=== PATIENT | male | born 1995 | race African-American/Black ===

== ENCOUNTER 2019-09-24 20:47 | Emergency (ER) | payer MEDICAID, OTHER ==
[~2019-09-24] VITALS: Ht 188 cm; Wt 74.8 kg
[2019-09-24 21:17] VITALS: BP 132/89
--- NOTE | 2019-09-24 21:17 | NUR ---
CLOTH OPENER HAND AT BEDSIDE FOR BLOOD DRAW
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
[2019-09-24 21:22] LABS: BASOPHILS # (AUTO) 0.2 /CMM (0.0-0.2); BASOPHILS % (AUTO) 2.9 % (0.0-2.0); EOSINOPHILS % (AUTO) 1.7 % (0.0-6.0); HEMATOCRIT 41 % (39-51); HEMOGLOBIN 13.3 g/dL (13.5-17.5); LYMPHOCYTES # (AUTO) 0.9 /CMM (0.8-4.8); MEAN CORPUSCULAR HGB CONC 32 g/dl (31.0-36.0); MEAN CORPUSCULAR VOLUME 88 fL (80-96); MONOCYTES # (AUTO) 0.4 /CMM (0.1-1.30); MONOCYTES % (AUTO) 7.8 % (2.0-12.0); NEUTROPHILS # (AUTO) 3.9 /CMM (1.8-8.9); NEUTROPHILS % (AUTO) 71.6 % (43.0-81.0); PLATELET COUNT (AUTO) 288 /CMM (150-450); RED BLOOD CELL COUNT(AUTO) 4.67 MIL/uL (4.5-6.0); WHITE BLOOD COUNT (AUTO) 5.4 K/uL (4.3-11.0)
[2019-09-24 21:30] LABS: CALCIUM, SERUM 9.6 mg/dL (8.5-10.1); CARBON DIOXIDE 21 mmol/L (21-32); CHLORIDE 104 mmol/L (98-107); CREATININE 1.3 mg/dL (0.6-1.3); GLUCOSE 84 mg/dL (74-106); POTASSIUM 3.4 mmol/L (3.5-5.1); SODIUM SERUM 140 mmol/L (136-145); UREA NITROGEN, BLOOD 17 mg/dL (7-18)
[2019-09-24 21:40] LABS: ALANINE AMINOTRANSFERASE 55 U/L (12-78); ALBUMIN 3.7 g/dL (3.4-5.0); ALCOHOL, BLOOD < 3 mg/dL (0-0); ALKALINE PHOSPHATASE 84 U/L (46-116); ASPARTATE AMINOTRANSFERASE 55 U/L (15-37); BILIRUBIN,DIRECT 0.1 mg/dL (0.0-0.2); BILIRUBIN,TOTAL 0.4 mg/dL (0.2-1.0); SALICYLATE 1.1 mg/dL (2.8-20.0); TOTAL PROTEIN, SERUM 7.9 g/dL (6.4-8.2)
[2019-09-24 21:41] LABS: ACETAMINOPHEN < 2 ug/ml (10-30)
[2019-09-24] MEDS ORDERED: LIDOCAINE /MPF 1% VIAL 5 ML VIAL ONE (22:07)
--- NOTE | 2019-09-24 22:57 | NUR ---
Patient given written and verbal discharge instructions. Patient verbalizes understanding of instructions. Patient is ambulatory with steady gait. Refuses offer of halfway placement. Patient given list of available shelters in surrounding area.
== END 2019-09-24 23:18 | disposition home or self-care (01) ==
LOC: ER 20:48
DX: S01.81XA Laceration without foreign body of other part of head, initial encounter (principal); R41.82 Altered mental status, unspecified; Z59.0 Homelessness; Y04.0XXA Assault by unarmed brawl or fight, initial encounter; Y93.89 Activity, other specified; Y92.89 Other specified places as the place of occurrence of the external cause; Y99.8 Other external cause status
CPT/HCPCS: 12011; 36415; 70450; 70486; 80048; 80076; 80307; 80329; 85025; 99284; A6403; G0480; J3490

== ENCOUNTER 2019-09-25 07:19 | Emergency (ER) | payer MEDICAID ==
[~2019-09-25] VITALS: Ht 188 cm; Wt 72.6 kg
[2019-09-25 07:31] VITALS: BP 140/71
[2019-09-25] MEDS ORDERED: OLANZAPINE 5 MG TABLET ONE ×2 (07:56→08:01)
[2019-09-25 07:57] LABS: BASOPHILS # (AUTO) 0.1 /CMM (0.0-0.2); BASOPHILS % (AUTO) 0.7 % (0.0-2.0); HEMATOCRIT 45 % (39-51); HEMOGLOBIN 14.8 g/dL (13.5-17.5); LYMPHOCYTES # (AUTO) 1.4 /CMM (0.8-4.8); LYMPHOCYTES % (AUTO) 17.8 % (20.0-44.0); MEAN CORPUSCULAR HGB CONC 33 g/dl (31.0-36.0); MEAN CORPUSCULAR VOLUME 87 fL (80-96); MONOCYTES # (AUTO) 0.7 /CMM (0.1-1.30); MONOCYTES % (AUTO) 9.5 % (2.0-12.0); NEUTROPHILS # (AUTO) 5.6 /CMM (1.8-8.9); PLATELET COUNT (AUTO) 304 /CMM (150-450); RED BLOOD CELL COUNT(AUTO) 5.16 MIL/uL (4.5-6.0); WHITE BLOOD COUNT (AUTO) 7.8 K/uL (4.3-11.0)
[2019-09-25] MEDS ORDERED: OLANZAPINE 5 MG TABLET PO ONE (08:00)
[2019-09-25 08:04] LABS: CALCIUM, SERUM 8.9 mg/dL (8.5-10.1); CARBON DIOXIDE 29 mmol/L (21-32); CHLORIDE 102 mmol/L (98-107); CREATININE 0.6 mg/dL (0.6-1.3); GLUCOSE 71 mg/dL (74-106); POTASSIUM 3.6 mmol/L (3.5-5.1); SODIUM SERUM 136 mmol/L (136-145); UREA NITROGEN, BLOOD 12 mg/dL (7-18)
[2019-09-25 08:10] LABS: ALANINE AMINOTRANSFERASE 62 U/L (12-78); ALBUMIN 3.7 g/dL (3.4-5.0); ALCOHOL, BLOOD < 3 mg/dL (0-0); ALKALINE PHOSPHATASE 90 U/L (46-116); ASPARTATE AMINOTRANSFERASE 54 U/L (15-37); BILIRUBIN,DIRECT 0.1 mg/dL (0.0-0.2); BILIRUBIN,TOTAL 0.4 mg/dL (0.2-1.0); TOTAL PROTEIN, SERUM 8.1 g/dL (6.4-8.2)
--- NOTE | 2019-09-25 11:40 | NUR ---
Patient given written and verbal discharge instructions. Patient verbalizes understanding of instructions. Patient is ambulatory with steady gait. Refuses offer of jail placement. Patient given list of available shelters in surrounding area. Tap card and food provided. Denies SI/HI.
== END 2019-09-25 11:40 | disposition home or self-care (01) ==
LOC: ER 07:21
DX: F29 Unspecified psychosis not due to a substance or known physiological condition (principal); S01.81XD Laceration without foreign body of other part of head, subsequent encounter; R41.82 Altered mental status, unspecified; X08.8XXD Exposure to other specified smoke, fire and flames, subsequent encounter
CPT/HCPCS: 36415; 80048-TC; 80076-TC; 85025-TC; G0480

== ENCOUNTER 2019-09-28 18:02 | Emergency (ER) | payer OTHER, MEDICAID ==
[~2019-09-28] VITALS: Ht 185.4 cm; Wt 72.6 kg
[2019-09-28 18:05] VITALS: BP 125/79
[2019-09-28] MEDS: SULFAMETH/TRIMETH 800/160 MG 1 UDTAB TABLET PO ONE (19:31)
[2019-09-28] MEDS ORDERED: SULFAMETH/TRIMETH 800/160 MG 1 UDTAB TABLET ONE (19:32)
[2019-09-28] MEDS ORDERED: CEPHALEXIN MONOHYDRATE 500 MG CAPSULE PO ONE (19:32)
[2019-09-28] MEDS: CEPHALEXIN MONOHYDRATE 500 MG CAPSULE PO ONE (19:32)
[2019-09-28] MEDS ORDERED: OLANZAPINE 10 MG VIAL IM ONE (19:59)
[2019-09-28] MEDS: OLANZAPINE 10 MG VIAL IM ONE (20:09)
--- NOTE | 2019-09-28 20:10 | NUR ---
Pt AOx4, calm and coopertive at this time, resp even & unlabored w/ no acute distress noted. Patient refusing medication. [employer] officers at bedside for patient discharge. JANELLE Macario updated on pt status. Patient ambulatory w/ steady gait, escorted out of ER by [employer] officers.
== END 2019-09-28 19:34 ==
LOC: ER 18:05
DX: S00.81XA Abrasion of other part of head, initial encounter (principal); S50.812A Abrasion of left forearm, initial encounter; S10.81XA Abrasion of other specified part of neck, initial encounter; F29 Unspecified psychosis not due to a substance or known physiological condition; Z02.89 Encounter for other administrative examinations; M79.89 Other specified soft tissue disorders; R45.1 Restlessness and agitation; X58.XXXA Exposure to other specified factors, initial encounter; Y93.89 Activity, other specified; Y92.89 Other specified places as the place of occurrence of the external cause; Y99.8 Other external cause status
CPT/HCPCS: 99284; J3490

== ENCOUNTER 2019-12-25 10:50 | Emergency (ER) | payer MEDICAID, OTHER ==
[~2019-12-25] VITALS: Ht 188 cm; Wt 93.0 kg
[2019-12-25 11:04] VITALS: BP 128/93
[2019-12-25] MEDS ORDERED: IBUPROFEN 400 MG TABLET ONE (11:43)
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
--- NOTE | 2019-12-25 11:52 | NUR ---
Patient given written and verbal discharge instructions. Patient verbalizes understanding of instructions. Patient is ambulatory with steady gait. Refuses offer of penitentiary placement. Patient given list of available shelters in surrounding area. [facility] and consulted.
[2019-12-25] MEDS ORDERED: IBUPROFEN 400 MG TABLET PO ONE (12:00)
== END 2019-12-25 11:54 | disposition home or self-care (01) ==
LOC: ER 11:05
DX: M79.604 Pain in right leg (principal); M79.605 Pain in left leg

== ENCOUNTER 2019-12-26 10:31 | Emergency (ER) | payer MEDICAID ==
[~2019-12-26] VITALS: Ht 185.4 cm; Wt 74.8 kg
[2019-12-26 10:57] VITALS: BP 134/77
--- NOTE | 2019-12-26 11:01 | NUR ---
PT CAME TO ER BED 7 C/O BILATERAL LOWER EXTREMITY PAIN. PT STATES HE WA AT [facility] YESTERDAY FOR A CHECK UP. PT LEFT [facility] BECAUSE HE WAS BUSY. PT IS REQUESTING FOOD. AAOX4. VSS. WILL MONITOR ACCORDINGLY.
--- NOTE | 2019-12-26 11:04 | NUR ---
seen and examined by Jesus Manuel LUIS
--- NOTE | 2019-12-26 11:07 | NUR ---
kitchen called for food.
[2019-12-26] MEDS ORDERED: ACETAMINOPHEN ES 500 MG TABLET ONE (11:09)
--- NOTE | 2019-12-26 11:23 | NUR ---
Patient discharged to home in stable condition. Written and verbal after care instructions given. Patient verbalizes understanding of instruction.
[2019-12-26] MEDS ORDERED: ACETAMINOPHEN 325 MG TABLET PO ONE (11:30)
== END 2019-12-26 11:34 | disposition home or self-care (01) ==
LOC: ER 10:31
DX: M79.662 Pain in left lower leg (principal); M79.661 Pain in right lower leg; V09.9XXA Pedestrian injured in unspecified transport accident, initial encounter; Y93.89 Activity, other specified; Y92.89 Other specified places as the place of occurrence of the external cause; Y99.8 Other external cause status

== ENCOUNTER 2019-12-26 17:04 | Emergency (ER) | payer MEDICAID ==
[~2019-12-26] VITALS: Ht 182.9 cm; Wt 90.7 kg
[2019-12-26 17:26] VITALS: BP 145/84
[2019-12-26] MEDS ORDERED: IBUPROFEN 600 MG TABLET PO ONE (17:31)
[2019-12-26] MEDS: IBUPROFEN 600 MG TABLET PO ONE (17:37)
== END 2019-12-26 17:39 | disposition home or self-care (01) ==
LOC: ER 17:10
DX: G89.29 Other chronic pain (principal); M79.605 Pain in left leg; M79.604 Pain in right leg

== ENCOUNTER 2020-02-06 10:56 | Emergency (ER) | payer SELFPAY ==
[~2020-02-06] VITALS: Ht 177.8 cm; Wt 78.9 kg
--- NOTE | 2020-02-06 11:00 | NUR ---
PT BIB RA AND PD C/O BIZARRE AND AGGRESSIVE BEHAVIOR, PT IS AAOX2, NOT IN RESPIRATORY DISTRESS, HOOKED TO MONITOR, KEPT RESTED AND COMFORTABLE, WILL CONTINUE TO MONITOR.
--- NOTE | 2020-02-06 11:01 | NUR ---
AT BEDSIDE FOR EVAL.
[2020-02-06] MEDS ORDERED: HALOPERIDOL LACTATE INJ 5 MG/ML VIAL ONE (11:02)
[2020-02-06] MEDS ORDERED: diphenhydrAMINE HCL 50 MG/ML VIAL ONE (11:02)
[2020-02-06] MEDS ORDERED: LORAZEPAM INJ 2 MG/ML VIAL ONE (11:03)
[2020-02-06] MEDS ORDERED: diphenhydrAMINE HCL 50 MG/ML VIAL IM ONE (11:30)
[2020-02-06] MEDS ORDERED: HALOPERIDOL LACTATE INJ 5 MG/ML VIAL IM ONE (11:30)
[2020-02-06] MEDS ORDERED: LORAZEPAM INJ 2 MG/ML VIAL IM/IV ONE (11:30)
--- NOTE | 2020-02-06 11:35 | NUR ---
ER PHLEB AT BEDSIDE FOR BLOD DRAW
[2020-02-06 11:41] LABS: BASOPHILS % (AUTO) 0.5 % (0.0-2.0); EOSINOPHILS % (AUTO) 3.9 % (0.0-6.0); HEMATOCRIT 39 % (39-51); HEMOGLOBIN 12.4 g/dL (13.5-17.5); LYMPHOCYTES # (AUTO) 1.5 /CMM (0.8-4.8); LYMPHOCYTES % (AUTO) 31.6 % (20.0-44.0); MEAN CORPUSCULAR HGB CONC 32 g/dl (31.0-36.0); MEAN CORPUSCULAR VOLUME 86 fL (80-96); MONOCYTES # (AUTO) 0.7 /CMM (0.1-1.30); MONOCYTES % (AUTO) 14.1 % (2.0-12.0); NEUTROPHILS # (AUTO) 2.4 /CMM (1.8-8.9); NEUTROPHILS % (AUTO) 49.9 % (43.0-81.0); PLATELET COUNT (AUTO) 285 /CMM (150-450); WHITE BLOOD COUNT (AUTO) 4.9 K/uL (4.3-11.0)
[2020-02-06 12:07] LABS: CALCIUM, SERUM 8.7 mg/dL (8.5-10.1); CARBON DIOXIDE 29 mmol/L (21-32); CHLORIDE 108 mmol/L (98-107); CREATININE 0.8 mg/dL (0.6-1.3); GLUCOSE 86 mg/dL (74-106); POTASSIUM 4.1 mmol/L (3.5-5.1); SODIUM SERUM 143 mmol/L (136-145); UREA NITROGEN, BLOOD 11 mg/dL (7-18)
[2020-02-06 12:09] LABS: ALANINE AMINOTRANSFERASE 38 U/L (12-78); ALBUMIN 3.1 g/dL (3.4-5.0); ALCOHOL, BLOOD < 3 mg/dL (0-0); ALKALINE PHOSPHATASE 91 U/L (46-116); ASPARTATE AMINOTRANSFERASE 31 U/L (15-37); BILIRUBIN,DIRECT 0.1 mg/dL (0.0-0.2); BILIRUBIN,TOTAL 0.2 mg/dL (0.2-1.0); TOTAL PROTEIN, SERUM 6.6 g/dL (6.4-8.2)
[2020-02-06 12:11] LABS: ACETAMINOPHEN 0 ug/ml (10-30); SALICYLATE 1.4 mg/dL (2.8-20.0)
[2020-02-06] MEDS ORDERED: OLANZAPINE 10 MG VIAL IM ONE ×2 (13:55→14:00)
[2020-02-06 14:26] LABS: APPEARANCE,URINE Clear (CLEAR); BILIRUBIN,URINE Negative (NEGATIVE); BLOOD, URINE Negative Ery/uL (NEGATIVE); COLOR,URINE Yellow (YELLOW); KETONES,URINE Negative (NEGATIVE); LEUKOCYTE ESTERASE ,URINE Negative (NEGATIVE); NITRITE, URINE Negative (NEGATIVE); PROTEIN,URINE Negative (NEGATIVE); UGLUCOSE Negative (NEGATIVE); UROBILINOGEN,URINE 0.2 EU/dL (0.2)
--- NOTE | 2020-02-07 01:13 | NUR ---
Patient is awake and alert to self, day, and place. PT DENIES SI/ HI. PT REQUESTING TO BE DISCHARGED. FOOD PROVIDED TO PATIENT.
--- NOTE | 2020-02-07 01:35 | NUR ---
Patient discharged to home in stable condition. Written and verbal after care instructions given. Patient verbalizes understanding of instruction. Pt refused to sign homeless discharge. VSS. Ambulated with steady gait.
[2020-02-07 01:37] VITALS: BP 129/74
== END 2020-02-07 01:37 | disposition home or self-care (01) ==
LOC: ER 10:56
DX: R45.1 Restlessness and agitation (principal); F20.9 Schizophrenia, unspecified
CPT/HCPCS: 36415; 80048; 80076; 80305; 80307; 80329; 81001; 85025; 96372 ×4; 99285; G0480; J1200; J1630; J2060; J3490; 81000-TC

== ENCOUNTER 2020-04-01 18:05 | Emergency (ER) | payer SELFPAY ==
[~2020-04-01] VITALS: Ht 152.4 cm; Wt 80.3 kg
[2020-04-01] MEDS ORDERED: OLANZAPINE 10 MG VIAL IM ONE ×2 (18:46→19:00)
--- NOTE | 2020-04-01 18:53 | NUR ---
FELISHA AND [employer] FROM STREET. TO ER BED 12. AAOX4. NOT IN RESP DISTRESS. BROUGHT IN FOR AGITATION, RESTLESSNESS AND ADMITTED TO METH USE TODAY.UPON ASSESSMENT, IS COOPERATIVE AND COMPLIANT. DENIES SI NOR HI. DENIES HALLUCINATIONS. ADMITS TO METH USE TODAY. PT ALSO VERBALIZED THAT HE HASNT TAKEN HIS LITHIUM FOR THE PAST 3 DAYS BECAUSE THEY WERE STOLEN. WAS AT BEDSIDE FOR EVAL. ORDERS RECEIVED NOTED AND CARRIED OUT. MEDICATED ORDERED. UPHOLSTERY ESTIMATOR AT BEDSIDE FOR BLOOD DRAWN.
[2020-04-01 18:58] LABS: BASOPHILS % (AUTO) 0.5 % (0.0-2.0); EOSINOPHILS % (AUTO) 0.8 % (0.0-6.0); HEMATOCRIT 43 % (39-51); LYMPHOCYTES # (AUTO) 1.5 /CMM (0.8-4.8); MEAN CORPUSCULAR HGB CONC 33 g/dl (31.0-36.0); MEAN CORPUSCULAR VOLUME 84 fL (80-96); MONOCYTES # (AUTO) 0.4 /CMM (0.1-1.30); MONOCYTES % (AUTO) 8.5 % (2.0-12.0); NEUTROPHILS # (AUTO) 2.6 /CMM (1.8-8.9); NEUTROPHILS % (AUTO) 57.2 % (43.0-81.0); PLATELET COUNT (AUTO) 229 /CMM (150-450); RED BLOOD CELL COUNT(AUTO) 5.11 MIL/uL (4.5-6.0); WHITE BLOOD COUNT (AUTO) 4.6 K/uL (4.3-11.0)
[2020-04-01 19:06] LABS: CALCIUM, SERUM 9.1 mg/dL (8.5-10.1); CARBON DIOXIDE 28 mmol/L (21-32); CHLORIDE 104 mmol/L (98-107); GLUCOSE 96 mg/dL (74-106); POTASSIUM 3.8 mmol/L (3.5-5.1); SODIUM SERUM 140 mmol/L (136-145); UREA NITROGEN, BLOOD 7 mg/dL (7-18)
[2020-04-01 19:11] LABS: ALANINE AMINOTRANSFERASE 23 U/L (12-78); ALBUMIN 3.8 g/dL (3.4-5.0); ALCOHOL, BLOOD < 3 mg/dL (0-0); ALKALINE PHOSPHATASE 82 U/L (46-116); ASPARTATE AMINOTRANSFERASE 19 U/L (15-37); BILIRUBIN,DIRECT 0.1 mg/dL (0.0-0.2); BILIRUBIN,TOTAL 0.2 mg/dL (0.2-1.0); SALICYLATE 2.2 mg/dL (2.8-20.0); TOTAL PROTEIN, SERUM 7.5 g/dL (6.4-8.2)
[2020-04-01 19:12] LABS: ACETAMINOPHEN 0 ug/ml (10-30)
[2020-04-01] MEDS ORDERED: LORAZEPAM INJ 2 MG/ML VIAL IM ONE (19:30)
[2020-04-01] MEDS ORDERED: diphenhydrAMINE HCL 50 MG/ML VIAL IM ONE (19:30)
[2020-04-01] MEDS ORDERED: HALOPERIDOL LACTATE INJ 5 MG/ML VIAL IM ONE (19:30)
--- NOTE | 2020-04-01 19:42 | NUR ---
PT IS CALM, COOPERATIVE AND COMPLIANT. MADE AWARE. ADDITIONAL MEDICATION ORDER ON HOLD.
[2020-04-01] MEDS ORDERED: diphenhydrAMINE HCL 50 MG/ML VIAL ONE (20:24)
[2020-04-01] MEDS ORDERED: HALOPERIDOL LACTATE INJ 5 MG/ML VIAL ONE (20:24)
--- NOTE | 2020-04-01 20:31 | NUR ---
PT STARTED TO BECAUSE AGITATED AND YELLING. MD ORDERED TO GIVE MEDICATION ORDERED
[2020-04-01 21:19] LABS: APPEARANCE,URINE Clear (CLEAR); BILIRUBIN,URINE Negative (NEGATIVE); BLOOD, URINE Negative Ery/uL (NEGATIVE); COLOR,URINE Yellow (YELLOW); KETONES,URINE Negative (NEGATIVE); LEUKOCYTE ESTERASE ,URINE Negative (NEGATIVE); NITRITE, URINE Negative (NEGATIVE); PH,URINE 6.5 (5.0-8.0); PROTEIN,URINE Negative (NEGATIVE); UGLUCOSE Negative (NEGATIVE); UROBILINOGEN,URINE 0.2 EU/dL (0.2)
--- NOTE | 2020-04-01 23:31 | NUR ---
PT IN BED SLEEPING. NAD NOTED.
--- NOTE | 2020-04-02 00:45 | NUR ---
PT ASLEEP, NO ACUTE DISTRESS NOTED, RESP EVEN AND UNLABORED. CALL LIGHT WITHIN REACH. WILL CONTINUE TO MONITOR PT CLOSELY.
--- NOTE | 2020-04-02 02:38 | NUR ---
PT RESTING IN BED COMFORTABLY. VSS. NO ACUTE DISTRESS NOTED. CALL LIGHT WITHIN REACH. WILL CONTINUE TO MONITOR FOR SAFETY
--- NOTE | 2020-04-02 03:26 | NUR ---
PT AAOX4 NO ACUTE DISTRESS NOTED, RESP EVEN AND UNLABORED. PT AMBULATORY TO THE RESTROOM WITH STEADY GAIT NOTED.
--- NOTE | 2020-04-02 03:41 | NUR ---
NOY BECKETT AT BEDSIDE TO BRYANT SOLO
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
[2020-04-02 04:01] VITALS: BP 127/62
== END 2020-04-02 04:01 | disposition home or self-care (01) ==
LOC: ER 18:06
DX: F23 Brief psychotic disorder (principal); F15.10 Other stimulant abuse, uncomplicated; R45.1 Restlessness and agitation; R00.0 Tachycardia, unspecified
CPT/HCPCS: 36415; 80048; 80076; 80305; 80307; 80329; 81001; 82550; 85025; 93005; 96372 ×2; 99284; G0480; J1200; J1630; J3490; 81000-TC